=== PATIENT | female | born 1965 | race Caucasian/White ===

== ENCOUNTER → 2018-01-25 | Outpatient (CLI) | payer OTHER ==
[~2018-01-25] MED LIST: Advil200 M1 PO; CHOL10002 PO; Mobic15 MG PO; TRAM50 PO
== END | disposition home or self-care (01) ==
LOC: LAB SHORT 15:19 → OLS 15:19
PROVIDERS: Nurse Practitioner Women's Health
DX: Z12.4 Encounter for screening for malignant neoplasm of cervix (principal)
CPT/HCPCS: 87624; G0123

== ENCOUNTER → 2018-05-09 | Outpatient (CLI) | payer OTHER | END | disposition home or self-care (01) | LOC: LAB 17:33 → LAB SHORT 17:33 | DX: B35.1 Tinea unguium (principal) | CPT/HCPCS: 88305; 88312 ==

== ENCOUNTER → 2019-03-09 | Outpatient (CLI) | payer OTHER ==
[2019-03-09 16:08] LABS: Source, Urine Clean Catch
[2019-03-09 17:52] LABS: Bilirubin, Urine Neg (Neg); Blood, Urine Neg (Neg); Glucose Qualitative, Urine Neg (Neg); Ketones, Urine 1+ (Neg); Leukocyte Esterase, Urine 2+ (Neg); Nitrite, Urine Neg (Neg); Protein, Urine Neg (Neg); Specific Gravity, Urine 1.005 (1.003-1.022); Urobilinogen, Urine NORM (Normal); pH, Urine 6.5 (5.0-8.0)
[2019-03-09 18:11] LABS: Appearance, Urine Clear (Clear); Color, Urine Pale Yellow (P-Yellow)
[2019-03-09 18:15] LABS: Bacteria Rare /hpf; Red Blood Cells, Urine 0-2 /hpf (0-2); Squamous Epithelial Cells Many /hpf (Few)
== END | disposition home or self-care (01) ==
LOC: LAB SHORT 16:06 → LAB 16:06 → LAB FUT 03-08 12:20
PROVIDERS: Internal Medicine
DX: R35.1 Nocturia (principal)
CPT/HCPCS: 81001; 87086

== ENCOUNTER → 2022-08-28 | Outpatient (CLI) | payer OTHER ==
[2022-08-28 12:46] LABS: U Amphetamine Screen Not Detected; U Barbituate Screen Not Detected; U Benzodiazapine Screen Not Detected; U Buprenorphine Screen Not Detected; U Cannabinoids Screen Not Detected; U Cocaine Screen Not Detected; U Methadone Screen Not Detected; U Methamphetamine Screen Not Detected; U Opiates Screen Not Detected; U Oxycodone Screen Not Detected; U Phencyclidine Screen Not Detected; U Propoxyphene Screen Not Detected
== END | disposition home or self-care (01) ==
LOC: LAB SHORT 12:26 → LAB 12:26
PROVIDERS: Family Medicine
DX: Z51.81 Encounter for therapeutic drug level monitoring (principal); Z79.899 Other long term (current) drug therapy

== ENCOUNTER → 2022-11-02 | Outpatient (CLI) | payer OTHER | END | disposition home or self-care (01) | LOC: PLD 14:56 → LAB SHORT 14:56 | DX: L82.1 Other seborrheic keratosis (principal) | CPT/HCPCS: 88305 ==

== ENCOUNTER 2023-03-03 11:51 | Day surgery (SDC) | payer OTHER ==
[~2023-03-03] VITALS: Ht 167.6 cm; Wt 98.3 kg
[2023-03-03] MEDS ORDERED: GABA400 (12:27)
[2023-03-03] MEDS ORDERED: TIZA4 (12:27)
[2023-03-03] MEDS ORDERED: OXYC5 (12:28)
[2023-03-03 14:35] VITALS: BP 129/116
--- NOTE | 2023-03-03 15:34 | NUR ---
03/03/23 1534 Parag Ruiz PT URINATED PRIOR TO DISCHARGE. BLADDER SCAN SHOWED <102ML. PT REPORTED SLIGHT PAIN WITH URINATION AND WAS REMINDED TO CALL DR. POLK , IF PAIN WITH URINATION WORSENS OVER THE NEXT 24 HOURS. PT REPORTED SLIGHT BLEEDING, BUT DESCRIBED BLEEDING LESS THAN A MESTURAL PERIOD. SHE WAS REMINDED TO CALL DR. POLK IF SIMONE EXPERIENCES BLEEDING HEAVIER THAN A MENSTURAL PERIOD.
== END 2023-03-03 15:16 | disposition home or self-care (01) ==
LOC: ORSCSDS 11:51
PROVIDERS: Obstetrics & Gynecology
PROC: 0UDB8ZX Extraction of Endometrium, Via Natural or Artificial Opening Endoscopic, Diagnostic (ICD-10-PCS; principal; 2023-03-03 13:00)
DX: N95.0 Postmenopausal bleeding (principal); R93.89 Abnormal findings on diagnostic imaging of other specified body structures; E66.9 Obesity, unspecified; Z68.35 Body mass index [BMI] 35.0-35.9, adult; Z79.899 Other long term (current) drug therapy
CPT/HCPCS: 88305; A9270; J1100; J1885; J2405; J2704; J2795; J3010; J7120

== ENCOUNTER → 2023-03-23 | Outpatient (CLI) | payer OTHER ==
[~2023-03-23] MED LIST changes: +GABA400; +OXYC5; +TIZA4
== END ==
LOC: PLD 15:42 → LAB 15:42 → LAB SHORT 15:42
DX: R23.4 Changes in skin texture (principal)
CPT/HCPCS: 88305